=== PATIENT | male | born 1990 | race Caucasian/White ===

== ENCOUNTER → 2018-11-09 | Outpatient (CLI) | payer BC ==
--- NOTE | 2018-11-09 18:20 | REP ---
RIGHT FINGERS, FOUR VIEWS: HISTORY: Open wound index finger. There is a nondisplaced fracture of the tuft of the distal phalange of the second digit. There is no dislocation. The joint spaces are normal in appearance. IMPRESSION:Nondisplaced fracture of the second distal phalange. Electronically Signed by Riaz Skinner MD 11/09/2018 06:24 P
== END ==
LOC: M WUC 14:51
PROVIDERS: ATTEND Physician Assistant
DX: S62.661A Nondisplaced fracture of distal phalanx of left index finger, initial encounter for closed fracture (principal); X58.XXXA Exposure to other specified factors, initial encounter; Y92.89 Other specified places as the place of occurrence of the external cause